=== PATIENT | male | born 1955 ===

== ENCOUNTER 2018-11-14 11:03 | Emergency (ER) | payer OTHER ==
[2018-11-14 11:08] VITALS: BMI 21.8
--- NOTE | 2018-11-14 11:18 | PDOC ---
History of Present Illness - General Chief Complaint: Altered Mental Status Stated Complaint: ALTER MENTAL Time Seen by Provider: 11/14/18 11:12 History Source: Patient, Family Exam Limitations: No Limitations - History of Present Illness Initial Comments: 11/14/18 11:16 HPI 63 YOM with h/o HTN on ASA and plavix, HLD, neuropathy, presenting with progressively worsening right sided numbness, weakness, blurry vision and gait instability with AMS since yesterday afternoon. last normal at 6AM yesterday morning. since yesterday, has had increased confusion, gait instability/difficulty walking Denies fever, chills, chest pain, SOB, palpitation, dizziness, weakness, N, V, D , abdominal pain, bladder and bowel problems, leg swelling, . No new changes in medications. Allergies: None Past Medical History: as documented in EMR/HPI Social history: Lives with family. +tobacco use, No ETOH or drug use. Surgical history: none Meds: ASA, plavix, gabapentin, lipitor. antihypertensive PMD: Dr Wooten 11/14/18 11:19 11/14/18 11:40 11/14/18 12:05 Past History - Past Medical History Allergies/Adverse Reactions: Allergies Allergy/AdvReac Type Severity Reaction Status Date / Time No Known Allergies Allergy Verified 11/14/18 11:08 COPD: No HTN: Yes - Suicide/Smoking/Psychosocial Hx Smoking History: Current every day smoker Number of Cigarettes Smoked Daily: 6 Information on smoking cessation initiated: No Review of Systems - Review of Systems Able to Perform ROS?: Yes Comments:: 11/14/18 11:18 Constitutional: no fevers or chills. HEENT: no headache or dizziness. No congestion. +blurry vision. visual field cut CVS: no cp or syncope. Resp: no sob. No cough. Gastrointestinal: no abdominal pain, nausea or vomiting. Genitourinary: no urinary sx, hematuria. MUSCULOSKELETAL: No joint pain and swelling. No neck or back pain. SKIN: no redness or skin changes, no discharge, no rash. No wounds. Hematologic: no easy bruising/bleeding. NEUROLOGIC: No headache, dizziness, LOC. +focal weakness, numbness. +gait instability, +AMS Psych: no anxiety or depression Allergic/Immunologic: no allergies All other systems reviewed and negative, or as documented in HPI. 11/14/18 11:40 *Physical Exam - Vital Signs Last Vital Signs Temp Pulse Resp BP Pulse Ox 98.1 F 78 18 158/92 97 11/14/18 11:05 11/14/18 11:05 11/14/18 11:05 11/14/18 11:05 11/14/18 11:05 - Physical Exam Comments: 11/14/18 11:19 General: Well appearing, awake and alert, NAD. HEENT: NCAT, PERRL, EOMI, no nystagmus horizontally/vertically, clear conjunctiva, anicteric, moist mucus membranes, clear oropharynx, no oral lesions.. Neck: neck supple, FROM Resp: CTAB, normal and even respirations, no respiratory distress CVS: RRR, no murmurs, 2+ peripheral pulses throughout, no peripheral edema Abdomen: soft, protuberant, +Right mid abdominal tenderness Back: nontender, normal inspection and ROM MSK: no edema, CRYSTAL x4, ROM intact. No clubbing or cyanosis. normal bulk and tone. Neuro: Alert, oriented to person time and place. rt facial decreased sensation to touch/pinprick, 5/5 masseter muscle strength, mild right lower facial droop, forehead wrinkling equal and symmetric, 5/5 shoulder shrug. tongue midline. Asensate to RUE and RLE with pinprick. +right pronator drift, strength 3/5 against resistance proximally and distally with some effort against gravity, 1/ 5 strength in right lower extremity, no effort against gravity, +significant right lower extremity drift. unable to perform finger to nose/heel to dunn due to motor weakness. Speech clear. no dysarthria. +aphasic, unable to articulate pictoral events. Psych: anxious Skin: warm and well perfused, cap refill <2 sec, normal color 11/14/18 11:40 11/14/18 15:29 Heart Score/ECG Review #1 ECG reviewed & interpreted by me at: 11:25 General ECG Interpretation: Sinus Rhythm, Normal Rate, Normal Intervals Compared to previous ECG there are: Previous ECG unavail 11/14/18 11:51 EKG normal sinus rhythm at 64 bpm, no interval abnormalities, narrow QRS, ST and T wave segments and morphology normal. Nonspecific T wave abnormalities ED Treatment Course - LABORATORY CBC & Chemistry Diagram: 11/14/18 12:00 11/14/18 12:39 - RADIOLOGY Radiology Studies Ordered: Category Date Time Status CHEST X-RAY PORTABLE* [RAD] Stat Radiology 11/14/18 11:12 Ordered Medical Decision Making - Critical Care Time Total Critical Care Time (minutes): 60 (CVA, AAA/vascular emergency) Critical Care Statement: The care of this patient involved high complexity decision making to prevent further life threatening deterioration of the patient 's condition and/or to evaluate & treat vital organ system(s) failure or risk of failure. - Medical Decision Making 11/14/18 11:22 See HPI for details. Prior notes reviewed, including admissions, discharges and consultations. Vital signs reviewed, wnl. DDX CVA, aneurysm, SAH, head bleed, [employer] ATTORNEY mass, arrhythmia, ACS, carotid stenosis. infection, delirium, cerebellar lesion/mass. 11/14/18 11:22 code prasad called given focal symptoms NIHSS at 12 with focal deficits noted. last normal yesterday morning at 7AM - out of TPA window CT head dry scan with left occipital/parietal stroke, appears old, but with symptoms >24 hours ago, this could still be subacute. 11/14/18 11:56 - consults and recommendations: spoke with neuro spa concierge Dr Rubin, discussed case, candidate for CTA for large vessel occlusion. laboratory results and imaging reviewed, basic labs and lytes wnl, trop neg/Cr normal Cardiac panel_unremarkable EKG normal sinus rhythm at 64 bpm, no interval abnormalities, narrow QRS, ST and T wave segments and morphology normal. Nonspecific T wave abnormalities ED course -interventions: analgesia, - CTA, abdomen and pelvis and Cervical spine noncon indicated, given neuro sx. also abdominal pain while here, can do CTA runoff to abdomen with contrast found to have incidental/but symptomatic AAA at 6.6cm, no leak or dissection. -given rising BP to SBP 190s, already took antihypertensive (unclear name) this AM, now with AAA and CVA, will weigh risks/benefits of tx, minimize risk of rupture. nicardipine 2.5mg/hr gtt to lower BP slowly, as borderline bradycardia , avoid BB. Admitted initially for left CVA with significant neuro deficits/neuropathy. Discussed results and management plan with pt and family member at bedside, agree with impression, treatment indications, recommendations and plan. s/o to Dr Sugar regarding admission - however with updates as above with sx AAA, will need higher level of care, cardiac risk stratification and management of very large AAA - seen by Dr Rubin, see consult, note, agree with plan, higher level of care, AAA management with vascular surgeon and neuro/multidiscipilinary team at [facility]. 11/14/18 15:18 accepted to [facility], spoke with vascular surgeon Dr Sun, but due to acute stroke sx, out of TPA window and focal deficits, will transfer to the ED on tele and ACLS, s/o to ED attg Dr Alvarez transfer consent/paperwork signed by daughter at bedside. 11/14/18 15:37 *DC/Admit/Observation/Transfer Diagnosis at time of Disposition: AAA (abdominal aortic aneurysm) without rupture CVA (cerebral vascular accident) Qualifiers: CVA mechanism: occlusion Precerebral and cerebral artery: other cerebral artery Qualified Code(s): I63.59 - Cerebral infarction due to unspecified occlusion or stenosis of other cerebral artery - Discharge Dispostion Disposition: TRANSFER ACUTE CARE/OTHER HOSP Condition at time of disposition: Guarded Decision to Admit order: Yes Decision to Admit order Date/Time: 11/14/18 13:09 Decision to Admit Order Category Date Time Status Decision to Admit to Hospital Routine Admission 11/14/18 13:08 Ordered - Referrals Referrals: Juliette Wooten MD [Primary Care Provider] - - Patient Instructions - Post Discharge Activity NIH Stroke Scale - Last Known Well Date/Time & Onset Date Last Known Well: 11/13/18 Time Last Known Well: 06:00 - Initial Evaluation Level of consciousness: Alert Ask patient the month and their age: Answers both correctly Ask patient to open & close eyes; make fist and let go: Obeys both correctly Best gaze (horizontal eye movement): Normal Visual field testing: Complete hemianopia Facial paresis (Show teeth/raise eyebrows/close eyes tight): Partial paralysis ( total or near paralysis of lower face) Motor Function: Left Arm: Normal Motor Function: Right Arm: Some effort against gravity Motor Function: Left Leg: Normal (extends leg 30 degrees for 5 seconds without drift) Motor Function: Right Leg: No effort against gravity Limb Ataxia: No ataxia Sensory(Use pinprick test arms,legs,trunk,face/side to side): Severe to total sensory loss Best language (Describe picture, name items, read sentences): Mild to moderate aphasia Dysarthria (read several words): Normal articulation Extinction and Inattention: No abnormality - Total Score NIH Stroke Scale Score: 12
[2018-11-14 12:13] LABS: BASO % 0.4 % (0-2.0); EOS % 2.5 % (0-4.5); HEMATOCRIT 45.5 % (35.4-49); HEMOGLOBIN 15.9 GM/dL (11.7-16.9); LYMPH % 49.1 % (8-40); MCH 34.2 pg (25.7-33.7); MEAN CELL VOLUME 97.8 fl (80-96); MEAN PLT VOLUME 6.7 fl (7.5-11.1); MONO % 8.9 % (3.8-10.2); NEUT % 39.1 % (42.8-82.8); PLATELET COUNT 210 K/MM3 (134-434); RBC 4.65 M/mm3 (4.00-5.60); RDW 14.5 % (11.9-15.9); WHITE BLOOD COUNT 5.1 K/mm3 (4.0-10.0)
[2018-11-14 12:25] LABS: INR 1.13 (0.83-1.09); PROTHROMBIN TIME (PATIENT) 13.4 SEC (9.7-13.0)
[2018-11-14] MEDS ORDERED: SODIUM CHLORIDE 0.9% 500 ML INFUS.BAG IV ONE (12:56)
[2018-11-14 13:26] LABS: ALBUMIN 3.6 g/dl (3.4-5.0); ALK PHOS 77 U/L (45-117); ANION GAP 6 MMOL/L (8-16); BILIRUBIN,TOTAL 0.8 mg/dL (0.2-1); BLOOD UREA NITROGEN 18.4 mg/dL (7-18); CALCIUM 8.6 mg/dL (8.5-10.1); CHLORIDE 106 mmol/L (98-107); CO2 29 mmol/L (21-32); CREATININE 0.8 mg/dL (0.55-1.3); GLUCOSE,RANDOM 82 mg/dL (74-106); SGOT/AST 12 U/L (15-37); SGPT/ALT 24 U/L (13-61); SODIUM 141 mmol/L (136-145)
--- NOTE | 2018-11-14 14:44 | HP ---
Admitting History and Physical - Primary Care Physician PCP: Juliette Wooten - Admission Chief Complaint: HEADACHE/WEAKNESS/ARM PAIN History of Present Illness: 63 Y/O [place] MALE WITH 2 DAYS OF HEADACHE WEAKNESS, BLURRED VISION AND RIGHT ARM WEAKNESS PRESENTS TO ED WITH SUBACUTE NEW CVA ON CT HEAD. H/O HTN, LIPIDEMIA ON PLAVIX AND ASA. History Source: Family Member, Medical Record Limitations to Obtaining History: Poor Historian - Past Medical History PERFORMING ARTIST: Yes: CVA Cardiovascular: Yes: HTN, Hyperlipdemia - Smoking History Smoking history: Current every day smoker Aproximately how many cigarettes per day: 6 Home Medications - Allergies Allergies/Adverse Reactions: Allergies Allergy/AdvReac Type Severity Reaction Status Date / Time No Known Allergies Allergy Verified 11/14/18 11:08 Review of Systems - Review of Systems Constitutional: reports: Weakness Eyes: reports: Recent Change in Vision, Other HENT: reports: No Symptoms Neck: reports: Tenderness Cardiovascular: reports: Shortness of Breath Respiratory: reports: SOB Gastrointestinal: reports: Abdominal Pain Genitourinary: reports: Other Musculoskeletal: reports: Decreased ROM, Extremity Pain, Muscle Weakness Neurological: reports: Change in Speech, Parasthesia, Weakness Endocrine: reports: No Symptoms Hematology/Lymphatic: reports: No Symptoms Psychiatric: reports: Other Physical Examination Vital Signs: Vital Signs Temperature 98.1 F 11/14/18 11:05 Pulse Rate 56 L 11/14/18 12:45 Respiratory Rate 11/14/18 12:45 Blood Pressure 169/95 11/14/18 12:45 O2 Sat by Pulse Oximetry (%) 97 11/14/18 12:45 Constitutional: Yes: Moderate Distress Eyes: Yes: Other HENT: Yes: WNL Neck: Yes: WNL Cardiovascular: Yes: Regular Rate and Rhythm Respiratory: Yes: Diminished Gastrointestinal: Yes: Soft Renal/: Yes: Other Musculoskeletal: Yes: Muscle Pain, Muscle Weakness Extremities: Yes: Other Edema: No Peripheral Pulses WNL: Yes Integumentary: Yes: WNL Wound/Incision: Yes: Clean/Dry Neurological: Yes: Loss of Sensation, Numbness, Paresthesia, Weakness ...Motor Strength: RUE, RLE Psychiatric: Yes: Other Labs: CBC, BMP 11/14/18 12:00 11/14/18 12:39 Imaging - Results Cat Scan: Report Reviewed Problem List - Problems (1) Right hemiparesis Code(s): G81.91 - HEMIPLEGIA, UNSPECIFIED AFFECTING RIGHT DOMINANT SIDE (2) Smoking greater than 40 pack years Code(s): F17.210 - NICOTINE DEPENDENCE, CIGARETTES, UNCOMPLICATED (3) CVA (cerebral vascular accident) Code(s): I63.9 - CEREBRAL INFARCTION, UNSPECIFIED Qualifiers: CVA mechanism: occlusion Precerebral and cerebral artery: other cerebral artery Qualified Code(s): I63.59 - Cerebral infarction due to unspecified occlusion or stenosis of other cerebral artery Assessment/Plan LIPID PANEL BP CONTROL NEUROLOGY EVAL PT EVAL FALL RISKS AND NEURO CHECKS CARDIO EVAL ECHO/CAROTID DOPPLERCTA OF BRAIN ORDERED CT C-SPINE R/O RADICULOPATHY RIGHT ARM PAIN ABD PAIN CHECK CT ABD WELL LABS PENDING
[2018-11-14] MEDS ORDERED: ACETAMINOPHEN 325 MG TABLET (FP) PO PRN (14:49)
--- NOTE | 2018-11-14 15:28 | CON.NEURO ---
Consult - Past Medical History HOURLY SHIFT: Yes: CVA Cardio/Vascular: Yes: HTN, Hyperlipdemia - Smoking History Smoking history: Current every day smoker Aproximately how many cigarettes per day: 6 Home Medications - Allergies Allergies/Adverse Reactions: Allergies Allergy/AdvReac Type Severity Reaction Status Date / Time No Known Allergies Allergy Verified 11/14/18 11:08 Physical Exam-Neuro Vital Signs: Vital Signs Temperature 98.1 F 11/14/18 11:05 Pulse Rate 56 L 11/14/18 12:45 Respiratory Rate 19 11/14/18 12:45 Blood Pressure 169/95 11/14/18 12:45 O2 Sat by Pulse Oximetry (%) 97 11/14/18 12:45 Labs: CBC, BMP 11/14/18 12:00 11/14/18 12:39 INR, PTT INR 1.13 (0.83-1.09) H 11/14/18 12:00 Assessment/Plan cc Right sided hemiparesis and right hemianopsia HPI 63 year old male , smoker, htn, hld , pvd. He is taking palvix, aspirin and statin. Patient has sudden onset right arm, leg weakness with dififculty with vision. patient also found to have AAA, 7 cm. Patient complaining of right arm and leg numbness and leg is weaker than leg. Patient have difficult with vision. He denies any focal neurological syptoms NKDA Past Medical History: htn,hld,pvd, smoking Social history: Lives with family. +tobacco use, No ETOH or drug use. Surgical history: none Meds: ASA, plavix, gabapentin, lipitor. antihypertensive FH,ROS reviewed in chart NEUROLOGICAL EXAMINNATION Alert oriented x 2, speech is normal, able to repeat and express, There is right sided hemiparesis neck is supple 165/95, HR is regular right sided hemiparesis There is diminished sensation on right arm and leg ct showed subacute left occpital stroke abdominal ct/pelvis ct showed AAA Assessment/Plan 1.Left drapery inspector stroke, risk factor HTN,HLD,PVD,SMOKER. Paitent was on aspirin , plavix, statin. 2. Abdominal aneurysm found to have AAA 3. Neck pain seems to be muscular Plan: continue aspirin and statin, dual antiplatelet therapy not recommended due to high risk of bleed - agree with plan to transfer to [facility] - if admitted to [facility], should go to ICU - DVT prophylaxis, speech and PT - Vascular surgeyr consult for AAA, being considered to transfer, due to high risk surgery - overall prognosis was disucssed with daughter, patient , primary team, I spent 35 minute doing critical care Thanking you so much Neto Rubin MD
[2018-11-14 15:38] LABS: URINE APPEARANCE CLEAR; URINE BILIRUBIN NEGATIVE (NEGATIVE); URINE COLOR YELLOW; URINE GLUCOSE (UA) NEGATIVE (NEGATIVE); URINE KETONE NEGATIVE (NEGATIVE); URINE LEUK ESTERASE NEGATIVE (NEGATIVE); URINE NITRITE NEGATIVE (NEGATIVE); URINE PROTEIN NEGATIVE (NEGATIVE)
[2018-11-14] MEDS ORDERED: NICARDIPINE 25 MG in DEXTROSE 5%-WATER - 240 ML IVPB SCH (15:45)
[2018-11-14 15:47] VITALS: TEMP 98.2
--- NOTE | 2018-11-14 15:53 | DS ---
Physical Examination Vital Signs: Vital Signs Temperature 98.2 F 11/14/18 15:35 Pulse Rate 59 L 11/14/18 15:35 Respiratory Rate 19 11/14/18 15:35 Blood Pressure 190/111 H 11/14/18 15:35 O2 Sat by Pulse Oximetry (%) 97 11/14/18 15:35 Findings/Remarks: AAA SEEN ON CT SCAN TRANSFERRING TO [facility] Constitutional: Yes: Mild Distress Labs: CBC, BMP 11/14/18 12:00 11/14/18 12:39 Discharge Summary Reason For Visit: ALTER MENTAL Current Active Problems CVA (cerebral vascular accident) (Acute) Right hemiparesis (Acute) Smoking greater than 40 pack years (Acute) AAA Condition: Guarded - Instructions Referrals: Juliette Wooten MD [Primary Care Provider] - Disposition: TRANSFER ACUTE CARE/OTHER HOSP
[2018-11-14 16:06] VITALS: BP 182/106
[2018-11-14 16:14] VITALS: PULSE 60
[2018-11-14] MEDS ORDERED: METOPROLOL TARTRATE 25 MG TABLET (FP) PO SCH (22:00)
[2018-11-14] MEDS ORDERED: ATORVASTATIN CA 40 MG TABLET (FP) PO SCH (22:00)
--- NOTE | 2018-11-14 23:58 | EKG ---
Test Reason : Blood Pressure : / mmHG Vent. Rate : 064 BPM Atrial Rate : 064 BPM P-R Int : 160 ms QRS Dur : 102 ms QT Int : 384 ms P-R-T Axes : 060 -59 007 degrees QTc Int : 396 ms POOR DATA QUALITY, INTERPRETATION MAY BE ADVERSELY AFFECTED NORMAL SINUS RHYTHM INCOMPLETE RIGHT BUNDLE BRANCH BLOCK LEFT ANTERIOR FASCICULAR BLOCK MINIMAL VOLTAGE CRITERIA FOR LVH, MAY BE NORMAL VARIANT ANTERIOR INFARCT , AGE UNDETERMINED ABNORMAL ECG NO PREVIOUS ECGS AVAILABLE Confirmed by YUE QUILES MD ([id number]) on 11/14/2018 11:58:48 PM Referred By: Confirmed By:YUE QUILES MD
[2018-11-15] MEDS ORDERED: ASPIRIN 81 MG CHEWABLE TABLETS PO SCH (10:00)
== END 2018-11-14 16:15 | disposition short-term general hospital (02) ==
LOC: JER 11:03
PROC: 3E033GC Introduction of Other Therapeutic Substance into Peripheral Vein, Percutaneous Approach (ICD-10-PCS; principal; 2018-11-14)
DX: I71.4 Abdominal aortic aneurysm, without rupture (principal); I63.59 Cerebral infarction due to unspecified occlusion or stenosis of other cerebral artery; I10 Essential (primary) hypertension; E78.5 Hyperlipidemia, unspecified; G62.9 Polyneuropathy, unspecified; F17.210 Nicotine dependence, cigarettes, uncomplicated; G81.91 Hemiplegia, unspecified affecting right dominant side; Z79.82 Long term (current) use of aspirin; Z79.02 Long term (current) use of antithrombotics/antiplatelets
CPT/HCPCS: 36415; 70450-TC; 70496-TC; 70498-TC; 71045-TC-FY; 72125-TC; 74177-TC; 80053; 81003; 82550; 84484; 85025; 85610; 86850; 86900; 86901; 93005; 93010; 99285-25